=== PATIENT | male | born 1990 | race Caucasian/White ===

== ENCOUNTER 2019-03-10 06:30 | Emergency (ER) | payer MEDICAID, SELFPAY ==
[2019-03-10] MEDS ORDERED: Ibuprofen 800 MG TAB ONE (08:30)
--- NOTE | 2019-03-10 08:44 | RAD ---
EXAM: 4 views of the left knee HISTORY: Knee pain COMPARISON: None FINDINGS: No knee effusion is seen. There is no evidence of acute fracture or dislocation. No signifi cant degenerative changes are seen. Mild suprapatellar soft tissue swelling is present. IMPRESSION: No evidence of acute osseous abnormality.
== END 2019-03-10 09:25 | disposition home or self-care (01) ==
LOC: MADERS 06:30
DX: S83.92XA Sprain of unspecified site of left knee, initial encounter (principal); Z71.6 Tobacco abuse counseling; F17.210 Nicotine dependence, cigarettes, uncomplicated; W18.30XA Fall on same level, unspecified, initial encounter; Y92.69 Other specified industrial and construction area as the place of occurrence of the external cause
CPT/HCPCS: 99406